=== PATIENT | female | born 1955 | race Caucasian/White ===

== ENCOUNTER 2016-05-28 09:12 | Inpatient (IN) | payer OTHER ==
[~2016-05-28] VITALS: Ht 162.6 cm; Wt 129.7 kg
[2016-05-28] VITALS (7 sets, daily range): BP systolic 115–156
[2016-05-28] MEDS ORDERED: PIPERACILLIN/TAZO 3.38 GM in D5W 50 ML IV ONE (10:00)
[2016-05-28] MEDS ORDERED: NS 1000 ML BAG IV ONE (10:00)
[2016-05-28] MEDS ORDERED: VANCOMYCIN HCL 1,000 MG in NS 250 ML IV ONE (10:00)
[2016-05-28] MEDS ORDERED: VANCOMYCIN HCL 1000 MG/VIAL IV ONE (10:07)
[2016-05-28] MEDS ORDERED: PIPERACILLIN/TAZOBACTAM 3.375 GM/VIAL (ZOSYN) IV ONE (10:08)
[2016-05-28 10:12] LABS: HEMATOCRIT 33.1 % (36-48); HEMOGLOBIN 11.3 g/dL (12.0-16.0); MEAN CORPUSCULAR HEMOGLOBIN 29 pg (27-31); MEAN CORPUSCULAR HGB CONC 34 % (32-36); MEAN CORPUSCULAR VOLUME 86 fL (79.0-98.0); PLATELET COUNT (AUTO) 475 K/uL (130-430); RED BLOOD CELL COUNT(AUTO) 3.85 MIL/uL (4.2-6.2); RED CELL DISTRIBUTION WIDTH 12.2 % (9.0-15.0); WHITE BLOOD COUNT (AUTO) 25.7 K/uL (4.8-10.8)
[2016-05-28 10:22] LABS: CALCIUM 8.7 mg/dL (8.4-11.0); CREATININE 0.82 mg/dL (0.55-1.30); POTASSIUM 3.7 mmol/L (3.5-5.1)
[2016-05-28 10:26] LABS: ALBUMIN 2.2 g/dL (3.4-4.8); TOTAL BILIRUBIN 0.7 mg/dL (0.0-1.0); TOTAL PROTEIN, SERUM 7.6 g/dL (6.4-8.3)
[2016-05-28 10:27] LABS: INR 1.1 (0.8-1.2); PROTHROMBIN TIME 12.3 SECS (9.5-12.5)
[2016-05-28 10:31] LABS: BAND % (MANUAL) 2 % (0-6); BASOPHILS % (MANUAL) 0 % (0-2); EOSINOPHILS % (MANUAL) 0 % (0-7); LYMPHOCYTES % (MANUAL) 13 % (20-46); MONOCYTES % (MANUAL) 2 % (0-11)
[2016-05-28] MEDS ORDERED: cloNIDine HCL 0.1 MG TABLET PO PRN (11:45)
[2016-05-28] MEDS ORDERED: DEXTROSE 50% JECT 50 ML DISP.SYRIN IVP PRN (11:45)
[2016-05-28] MEDS: ONDANSETRON HCL 4 MG/2 ML VIAL IVP PRN (12:29)
[2016-05-28] MEDS: HYDROcodone/ACETAMIN 5-325 MG TAB (NORCO/ VICODIN) PO PRN (12:36)
[2016-05-28] MEDS: metFORMIN HCL 500 MG TABLET PO SCH (17:43)
[2016-05-28] MEDS: AMPICILLIN SODIUM/SULBACTAM NA 3 GM in NS 100 ML IV SCH (17:44)
[2016-05-28] MEDS: INSULIN REGULAR, HUMAN 100 UNITS/ML, 10 ML VIAL (novoLIN R) SUBCUT PRN ×2 (17:45→22:07)
[2016-05-28] MEDS: ACETAMINOPHEN 325 MG TABLET PO PRN (20:24)
[2016-05-28] MEDS: ENOXAPARIN SODIUM 40 MG/0.4 ML SYRINGE SUBCUT SCH (20:28)
[2016-05-28] MEDS ORDERED: ALBUTEROL SULFATE 0.083% 2.5 MG/3 ML VIAL.NEB INH PRN (20:45)
[2016-05-28] MEDS ORDERED: LACTOBACILLUS RHAMNOSUS GG 1 CAP CAPSULE PO SCH (21:00)
[2016-05-28 21:13] LABS: ABG TOTAL HEMOGLOBIN 11.4 G/dL (12.0-18.0); BLOOD GAS BASE EXCESS 0.7 mmol/L (-3.0-3.0); BLOOD GAS COHb% 0.3 % (0.5-1.5); BLOOD GAS HHB 9.5 % (0.0-6.0); BLOOD GAS PH 7.465 (7.350-7.450); BLOOD O2Hb% 89.9 % (94.0-97.0)
[2016-05-28] MEDS: LACTOBACILLUS RHAMNOSUS GG 1 CAP CAPSULE PO SCH (22:08)
[2016-05-28] MEDS ORDERED: IOHEXOL 350 mgI/mL, 150 ML INFUS..BTL IV ONE (22:19)
[2016-05-29] MEDS: AMPICILLIN SODIUM/SULBACTAM NA 3 GM in NS 100 ML IV SCH ×4 (00:06→17:17)
[2016-05-29] MEDS: HYDROcodone/ACETAMIN 10-325 MG TAB PO PRN (00:19)
[2016-05-29 04:20] VITALS: BP_SYST 121
[2016-05-29] MEDS: INSULIN REGULAR, HUMAN 100 UNITS/ML, 10 ML VIAL (novoLIN R) SUBCUT PRN ×4 (06:30→20:37)
[2016-05-29 07:05] LABS: BASOPHILS % (AUTO) 0.2 % (0.0-2.0); EOSINOPHILS # (AUTO) 0.1 K/uL (0.0-0.4); EOSINOPHILS % (AUTO) 0.4 % (0.0-4.0); HEMATOCRIT 31.8 % (36-48); HEMOGLOBIN 10.7 g/dL (12.0-16.0); LYMPHOCYTES % (AUTO) 8.3 % (20.5-51.5); MEAN CORPUSCULAR HEMOGLOBIN 29 pg (27-31); MEAN CORPUSCULAR HGB CONC 34 % (32-36); MEAN CORPUSCULAR VOLUME 87 fL (79.0-98.0); MONOCYTES # (AUTO) 1.2 K/uL (0.0-1.0); MONOCYTES % (AUTO) 5.1 % (1.7-9.3); NEUTROPHILS # (AUTO) 21.1 K/uL (1.8-7.7); PLATELET COUNT (AUTO) 410 K/uL (130-430); RED BLOOD CELL COUNT(AUTO) 3.64 MIL/uL (4.2-6.2); RED CELL DISTRIBUTION WIDTH 12.6 % (9.0-15.0); WHITE BLOOD COUNT (AUTO) 24.4 K/uL (4.8-10.8)
[2016-05-29 07:24] LABS: ALBUMIN 1.7 g/dL (3.4-4.8); CREATININE 0.7 mg/dL (0.55-1.30); POTASSIUM 3.4 mmol/L (3.5-5.1); THYROID STIMULATING HORMONE 1.07 uIu/mL (0.34-4.82); TOTAL BILIRUBIN 0.6 mg/dL (0.0-1.0); TOTAL PROTEIN, SERUM 6.7 g/dL (6.4-8.3)
[2016-05-29 07:29] LABS: IRON (SERUM) 16 mcg/dL (37-145)
[2016-05-29 07:31] LABS: TOTAL IRON BIND. CAPACITY 112 ug/dL (250-450)
[2016-05-29] MEDS: metFORMIN HCL 500 MG TABLET PO SCH ×2 (09:16→17:17)
[2016-05-29] MEDS: LACTOBACILLUS RHAMNOSUS GG 1 CAP CAPSULE PO SCH ×2 (09:16→20:19)
[2016-05-29 09:27] VITALS: BP_SYST 127
[2016-05-29 12:32] VITALS: BP_SYST 144
[2016-05-29] MEDS: SILVER SULFADIAZINE 1%, 25 GM TOPICAL CREAM (SSD) TP SCH ×2 (14:28→20:19)
[2016-05-29] MEDS: ACETAMINOPHEN 325 MG TABLET PO PRN (14:42)
[2016-05-29 16:51] VITALS: BP_SYST 140
[2016-05-29] MEDS ORDERED: POTASSIUM CHLORIDE 20 MEQ TAB.PRT.SR PO ONE (19:15)
[2016-05-29 19:50] VITALS: BP_SYST 113
[2016-05-29] MEDS: ENOXAPARIN SODIUM 40 MG/0.4 ML SYRINGE SUBCUT SCH (20:20)
[2016-05-29] MEDS: OMEPRAZOLE 20 MG CAPSULE.DR (PriLOSEC) PO SCH (21:30)
[2016-05-29] MEDS ORDERED: OMEPRAZOLE 20 MG CAPSULE.DR (PriLOSEC) PO ONE (21:45)
[2016-05-30] VITALS: BP_SYST 123
[2016-05-30] MEDS: AMPICILLIN SODIUM/SULBACTAM NA 3 GM in NS 100 ML IV SCH ×4 (00:16→17:37)
[2016-05-30] MEDS: HYDROcodone/ACETAMIN 5-325 MG TAB (NORCO/ VICODIN) PO PRN (00:18)
[2016-05-30 04:00] VITALS: BP_SYST 135
[2016-05-30] MEDS: INSULIN REGULAR, HUMAN 100 UNITS/ML, 10 ML VIAL (novoLIN R) SUBCUT PRN ×4 (06:29→21:47)
[2016-05-30 06:38] LABS: CALCIUM 7.9 mg/dL (8.4-11.0); CREATININE 0.71 mg/dL (0.55-1.30); POTASSIUM 3.5 mmol/L (3.5-5.1)
[2016-05-30 07:03] LABS: BASOPHILS # (AUTO) 0.1 K/uL (0.0-0.2); BASOPHILS % (AUTO) 0.3 % (0.0-2.0); EOSINOPHILS # (AUTO) 0.2 K/uL (0.0-0.4); EOSINOPHILS % (AUTO) 1.4 % (0.0-4.0); HEMATOCRIT 30.9 % (36-48); HEMOGLOBIN 10.2 g/dL (12.0-16.0); LYMPHOCYTES # (AUTO) 2.4 K/uL (1.0-5.5); LYMPHOCYTES % (AUTO) 13.3 % (20.5-51.5); MEAN CORPUSCULAR HEMOGLOBIN 29 pg (27-31); MEAN CORPUSCULAR HGB CONC 33 % (32-36); MEAN CORPUSCULAR VOLUME 88 fL (79.0-98.0); MONOCYTES # (AUTO) 1.1 K/uL (0.0-1.0); MONOCYTES % (AUTO) 6.2 % (1.7-9.3); PLATELET COUNT (AUTO) 430 K/uL (130-430); RED BLOOD CELL COUNT(AUTO) 3.52 MIL/uL (4.2-6.2); RED CELL DISTRIBUTION WIDTH 12.4 % (9.0-15.0); WHITE BLOOD COUNT (AUTO) 17.8 K/uL (4.8-10.8)
[2016-05-30] MEDS: OMEPRAZOLE 20 MG CAPSULE.DR (PriLOSEC) PO SCH (08:48)
[2016-05-30] MEDS: metFORMIN HCL 500 MG TABLET PO SCH ×2 (08:49→17:36)
[2016-05-30] MEDS: LACTOBACILLUS RHAMNOSUS GG 1 CAP CAPSULE PO SCH ×2 (08:49→21:43)
[2016-05-30 09:24] LABS: ABG TOTAL HEMOGLOBIN 12.2 G/dL (12.0-18.0); BLOOD GAS COHb% 0.4 % (0.5-1.5); BLOOD GAS HHB 3.7 % (0.0-6.0); BLOOD GAS PH 7.466 (7.350-7.450); BLOOD O2Hb% 95.6 % (94.0-97.0)
[2016-05-30 10:32] LABS: NEUTROPHILS % (AUTO) 78.8 % (40.0-70.0)
[2016-05-30 11:13] LABS: FOLATE (FOLIC ACID) 6.2 ng/mL (>3.0)
[2016-05-30] MEDS: HYDROcodone/ACETAMIN 10-325 MG TAB PO PRN (11:56)
[2016-05-30] MEDS: SILVER SULFADIAZINE 1%, 25 GM TOPICAL CREAM (SSD) TP SCH ×2 (12:04→21:00)
[2016-05-30 12:31] VITALS: BP_SYST 121
[2016-05-30] MEDS: VANCOMYCIN HCL 1,500 MG in NS 250 ML IV SCH (13:46)
[2016-05-30] MEDS ORDERED: EPOETIN ALFA 4,000 UNITS/ML VIAL SUBCUT ONE (14:00)
[2016-05-30] MEDS: SOD FERRIC GLUC COMPLEX/SUC 125 MG in NS 100 ML IV SCH (15:58)
[2016-05-30 17:23] VITALS: BP_SYST 118
[2016-05-30 19:50] VITALS: BP_SYST 114
[2016-05-30] MEDS: ENOXAPARIN SODIUM 40 MG/0.4 ML SYRINGE SUBCUT SCH (21:43)
[2016-05-31] VITALS (8 sets, daily range): BP systolic 119–144
[2016-05-31] MEDS: AMPICILLIN SODIUM/SULBACTAM NA 3 GM in NS 100 ML IV SCH ×4 (00:02→17:56)
[2016-05-31] MEDS: VANCOMYCIN HCL 1,500 MG in NS 250 ML IV SCH ×2 (00:49→14:08)
[2016-05-31] MEDS: INSULIN REGULAR, HUMAN 100 UNITS/ML, 10 ML VIAL (novoLIN R) SUBCUT PRN ×4 (06:34→21:29)
[2016-05-31] MEDS: metFORMIN HCL 500 MG TABLET PO SCH (09:02)
[2016-05-31] MEDS: LACTOBACILLUS RHAMNOSUS GG 1 CAP CAPSULE PO SCH ×2 (09:02→21:31)
[2016-05-31] MEDS: OMEPRAZOLE 20 MG CAPSULE.DR (PriLOSEC) PO SCH (09:02)
[2016-05-31] MEDS: SILVER SULFADIAZINE 1%, 25 GM TOPICAL CREAM (SSD) TP SCH ×2 (11:37→21:32)
[2016-05-31] MEDS: ACETAMINOPHEN 325 MG TABLET PO PRN (12:13)
[2016-05-31] MEDS: MORPHINE 4 MG/ML INJ. SYRINGE IVP PRN (16:37)
[2016-05-31] MEDS: SOD FERRIC GLUC COMPLEX/SUC 125 MG in NS 100 ML IV SCH (16:38)
[2016-05-31] MEDS ORDERED: COMMUNICATION ORDER XX ONE (17:15)
[2016-05-31] MEDS: ENOXAPARIN SODIUM 40 MG/0.4 ML SYRINGE SUBCUT SCH (21:31)
[2016-06-01] VITALS (8 sets, daily range): BP systolic 125–154
[2016-06-01] MEDS: AMPICILLIN SODIUM/SULBACTAM NA 3 GM in NS 100 ML IV SCH ×4 (00:18→18:11)
[2016-06-01] MEDS: VANCOMYCIN HCL 1,500 MG in NS 250 ML IV SCH ×2 (00:19→13:24)
[2016-06-01] MEDS: ONDANSETRON HCL 4 MG/2 ML VIAL IVP PRN (03:10)
[2016-06-01 06:21] LABS: BASOPHILS # (AUTO) 0.1 K/uL (0.0-0.2); BASOPHILS % (AUTO) 0.7 % (0.0-2.0); EOSINOPHILS # (AUTO) 0.3 K/uL (0.0-0.4); HEMATOCRIT 30.4 % (36-48); HEMOGLOBIN 10.7 g/dL (12.0-16.0); LYMPHOCYTES # (AUTO) 2.1 K/uL (1.0-5.5); LYMPHOCYTES % (AUTO) 14.2 % (20.5-51.5); MEAN CORPUSCULAR HEMOGLOBIN 29 pg (27-31); MEAN CORPUSCULAR HGB CONC 35 % (32-36); MEAN CORPUSCULAR VOLUME 84 fL (79.0-98.0); MONOCYTES # (AUTO) 0.6 K/uL (0.0-1.0); MONOCYTES % (AUTO) 4.5 % (1.7-9.3); NEUTROPHILS # (AUTO) 11.3 K/uL (1.8-7.7); NEUTROPHILS % (AUTO) 78.6 % (40.0-70.0); PLATELET COUNT (AUTO) 510 K/uL (130-430); RED BLOOD CELL COUNT(AUTO) 3.64 MIL/uL (4.2-6.2); RED CELL DISTRIBUTION WIDTH 12.4 % (9.0-15.0); WHITE BLOOD COUNT (AUTO) 14.4 K/uL (4.8-10.8)
[2016-06-01 06:46] LABS: CALCIUM 7.9 mg/dL (8.4-11.0); CREATININE 0.62 mg/dL (0.55-1.30); POTASSIUM 3.2 mmol/L (3.5-5.1)
[2016-06-01] MEDS: INSULIN REGULAR, HUMAN 100 UNITS/ML, 10 ML VIAL (novoLIN R) SUBCUT PRN ×4 (06:47→22:09)
[2016-06-01] MEDS: LACTOBACILLUS RHAMNOSUS GG 1 CAP CAPSULE PO SCH ×2 (08:24→22:03)
[2016-06-01] MEDS: OMEPRAZOLE 20 MG CAPSULE.DR (PriLOSEC) PO SCH (08:24)
[2016-06-01] MEDS: LOSARTAN POTASSIUM 25 MG TABLET PO SCH (08:25)
[2016-06-01] MEDS ORDERED: GADOPENTETATE DIMEGLUMINE 15 ML VIAL IV ONE (09:07)
[2016-06-01] MEDS: ACETAMINOPHEN 325 MG TABLET PO PRN ×2 (11:34→22:36)
[2016-06-01] MEDS: SILVER SULFADIAZINE 1%, 25 GM TOPICAL CREAM (SSD) TP SCH ×2 (11:51→22:03)
[2016-06-01] MEDS ORDERED: POTASSIUM CHLORIDE 20 MEQ TAB.PRT.SR PO ONE (12:00)
[2016-06-01] MEDS: ENOXAPARIN SODIUM 40 MG/0.4 ML SYRINGE SUBCUT SCH (22:03)
[2016-06-02] VITALS: BP_SYST 132
[2016-06-02] MEDS: VANCOMYCIN HCL 1,500 MG in NS 250 ML IV SCH (00:22)
[2016-06-02] MEDS: AMPICILLIN SODIUM/SULBACTAM NA 3 GM in NS 100 ML IV SCH ×6 (00:23→23:18)
[2016-06-02 05:06] VITALS: BP_SYST 136
[2016-06-02 06:38] LABS: BASOPHILS # (AUTO) 0.1 K/uL (0.0-0.2); EOSINOPHILS # (AUTO) 0.4 K/uL (0.0-0.4); EOSINOPHILS % (AUTO) 3.2 % (0.0-4.0); HEMATOCRIT 30.3 % (36-48); HEMOGLOBIN 10.6 g/dL (12.0-16.0); LYMPHOCYTES # (AUTO) 2.2 K/uL (1.0-5.5); LYMPHOCYTES % (AUTO) 15.4 % (20.5-51.5); MEAN CORPUSCULAR HEMOGLOBIN 29 pg (27-31); MEAN CORPUSCULAR HGB CONC 35 % (32-36); MEAN CORPUSCULAR VOLUME 83 fL (79.0-98.0); MONOCYTES # (AUTO) 0.6 K/uL (0.0-1.0); NEUTROPHILS # (AUTO) 10.7 K/uL (1.8-7.7); NEUTROPHILS % (AUTO) 76.4 % (40.0-70.0); PLATELET COUNT (AUTO) 509 K/uL (130-430); RED BLOOD CELL COUNT(AUTO) 3.65 MIL/uL (4.2-6.2); RED CELL DISTRIBUTION WIDTH 12.2 % (9.0-15.0)
[2016-06-02 06:58] LABS: ALANINE AMINOTRANSFERASE 23 U/L (12-78); ALBUMIN 1.9 g/dL (3.4-4.8); ASPARTATE AMINOTRANSFERASE 20 U/L (10-37); CALCIUM 8.3 mg/dL (8.4-11.0); CHLORIDE 99 mmol/L (98-107); CHOLESTEROL 120 mg/dL (<200); CREATININE 0.62 mg/dL (0.55-1.30); GFR AFRICAN AMERICAN 126 mL/min (>90); GLUCOSE 158 mg/dL (70-99); HDL CHOLESTEROL 26 mg/dL (>55); LDL CHOLESTEROL 78 mg/dL (<100); POTASSIUM 3.8 mmol/L (3.5-5.1); SODIUM SERUM 134 mmol/L (136-145); TOTAL BILIRUBIN 0.3 mg/dL (0.0-1.0); TOTAL PROTEIN, SERUM 6.6 g/dL (6.4-8.3); TRIGLYCERIDES 132 mg/dL (30-150); UREA NITROGEN, BLOOD 6 mg/dL (8-21)
[2016-06-02 06:59] LABS: ANION GAP < 3 (5-15)
[2016-06-02 08:12] VITALS: BP_SYST 144
[2016-06-02] MEDS: POTASSIUM CHLORIDE 20 MEQ TAB.PRT.SR PO SCH (08:52)
[2016-06-02] MEDS: OMEPRAZOLE 20 MG CAPSULE.DR (PriLOSEC) PO SCH (08:53)
[2016-06-02] MEDS: LACTOBACILLUS RHAMNOSUS GG 1 CAP CAPSULE PO SCH ×2 (08:53→20:55)
[2016-06-02] MEDS: LOSARTAN POTASSIUM 25 MG TABLET PO SCH (08:53)
[2016-06-02] MEDS: SILVER SULFADIAZINE 1%, 25 GM TOPICAL CREAM (SSD) TP SCH ×2 (08:54→20:56)
[2016-06-02] MEDS: INSULIN REGULAR, HUMAN 100 UNITS/ML, 10 ML VIAL (novoLIN R) SUBCUT PRN ×3 (11:24→21:05)
[2016-06-02 12:06] VITALS: BP_SYST 125
[2016-06-02] MEDS: MORPHINE 4 MG/ML INJ. SYRINGE IVP PRN (15:50)
[2016-06-02 16:08] VITALS: BP_SYST 136
[2016-06-02 19:30] VITALS: BP_SYST 130
[2016-06-02] MEDS: ENOXAPARIN SODIUM 40 MG/0.4 ML SYRINGE SUBCUT SCH (20:56)
[2016-06-03] VITALS (7 sets, daily range): BP systolic 124–147
[2016-06-03] MEDS: AMPICILLIN SODIUM/SULBACTAM NA 3 GM in NS 100 ML IV SCH ×4 (05:14→23:21)
[2016-06-03] MEDS: INSULIN REGULAR, HUMAN 100 UNITS/ML, 10 ML VIAL (novoLIN R) SUBCUT PRN ×4 (06:19→22:30)
[2016-06-03 06:31] LABS: BASOPHILS % (AUTO) 0.2 % (0.0-2.0); EOSINOPHILS # (AUTO) 0.4 K/uL (0.0-0.4); EOSINOPHILS % (AUTO) 2.7 % (0.0-4.0); HEMATOCRIT 31.9 % (36-48); HEMOGLOBIN 10.7 g/dL (12.0-16.0); LYMPHOCYTES # (AUTO) 2.5 K/uL (1.0-5.5); LYMPHOCYTES % (AUTO) 16.8 % (20.5-51.5); MEAN CORPUSCULAR HEMOGLOBIN 29 pg (27-31); MEAN CORPUSCULAR HGB CONC 34 % (32-36); MEAN CORPUSCULAR VOLUME 87 fL (79.0-98.0); MONOCYTES # (AUTO) 0.8 K/uL (0.0-1.0); MONOCYTES % (AUTO) 5.7 % (1.7-9.3); NEUTROPHILS # (AUTO) 10.9 K/uL (1.8-7.7); NEUTROPHILS % (AUTO) 74.6 % (40.0-70.0); PLATELET COUNT (AUTO) 519 K/uL (130-430); RED BLOOD CELL COUNT(AUTO) 3.66 MIL/uL (4.2-6.2); RED CELL DISTRIBUTION WIDTH 12.6 % (9.0-15.0); WHITE BLOOD COUNT (AUTO) 14.6 K/uL (4.8-10.8)
[2016-06-03 06:47] LABS: CALCIUM 8.3 mg/dL (8.4-11.0); CREATININE 0.58 mg/dL (0.55-1.30); POTASSIUM 4.3 mmol/L (3.5-5.1)
[2016-06-03] MEDS: metFORMIN HCL 500 MG TABLET PO SCH ×2 (09:37→17:12)
[2016-06-03] MEDS: OMEPRAZOLE 20 MG CAPSULE.DR (PriLOSEC) PO SCH (09:37)
[2016-06-03] MEDS: LOSARTAN POTASSIUM 25 MG TABLET PO SCH (09:38)
[2016-06-03] MEDS: SILVER SULFADIAZINE 1%, 25 GM TOPICAL CREAM (SSD) TP SCH ×2 (09:38→22:36)
[2016-06-03] MEDS: POTASSIUM CHLORIDE 20 MEQ TAB.PRT.SR PO SCH (09:38)
[2016-06-03] MEDS: LACTOBACILLUS RHAMNOSUS GG 1 CAP CAPSULE PO SCH ×2 (09:38→22:00)
[2016-06-03 11:57] LABS: INR 1.1 (0.8-1.2); PROTHROMBIN TIME 11.6 SECS (9.5-12.5)
[2016-06-03] MEDS ORDERED: CHOLECALCIFEROL (VITAMIN D3) 2,000 UNIT TABLET PO ONE (16:30)
[2016-06-03] MEDS: VANCOMYCIN HCL 1,500 MG in NS 250 ML IV SCH (20:32)
[2016-06-03] MEDS: ENOXAPARIN SODIUM 40 MG/0.4 ML SYRINGE SUBCUT SCH (21:54)
[2016-06-03] MEDS: NYSTATIN 30 GM TOPICAL CREAM TP SCH (22:35)
[2016-06-03] MEDS: MORPHINE 4 MG/ML INJ. SYRINGE IVP PRN (23:21)
[2016-06-04 00:48] VITALS: BP_SYST 131
[2016-06-04 04:52] VITALS: BP_SYST 141
[2016-06-04] MEDS: AMPICILLIN SODIUM/SULBACTAM NA 3 GM in NS 100 ML IV SCH ×4 (05:40→23:07)
[2016-06-04] MEDS: ACETAMINOPHEN 325 MG TABLET PO PRN (08:34)
[2016-06-04] MEDS: VANCOMYCIN HCL 1,500 MG in NS 250 ML IV SCH ×2 (08:35→20:12)
[2016-06-04] MEDS: LACTOBACILLUS RHAMNOSUS GG 1 CAP CAPSULE PO SCH ×2 (08:35→20:12)
[2016-06-04] MEDS: LOSARTAN POTASSIUM 25 MG TABLET PO SCH (08:36)
[2016-06-04] MEDS: OMEPRAZOLE 20 MG CAPSULE.DR (PriLOSEC) PO SCH (08:36)
[2016-06-04] MEDS: CHOLECALCIFEROL (VITAMIN D3) 2,000 UNIT TABLET PO SCH (08:37)
[2016-06-04] MEDS: POTASSIUM CHLORIDE 20 MEQ TAB.PRT.SR PO SCH (08:37)
[2016-06-04] MEDS: metFORMIN HCL 500 MG TABLET PO SCH ×2 (08:37→17:20)
[2016-06-04] MEDS: NYSTATIN 30 GM TOPICAL CREAM TP SCH ×2 (08:40→20:13)
[2016-06-04] MEDS: SILVER SULFADIAZINE 1%, 25 GM TOPICAL CREAM (SSD) TP SCH ×2 (08:40→20:13)
[2016-06-04 12:15] VITALS: BP_SYST 116
[2016-06-04 16:10] VITALS: BP_SYST 122
[2016-06-04] MEDS: MORPHINE 4 MG/ML INJ. SYRINGE IVP PRN (16:17)
[2016-06-04 19:40] VITALS: BP_SYST 137
[2016-06-04] MEDS: ENOXAPARIN SODIUM 40 MG/0.4 ML SYRINGE SUBCUT SCH (20:12)
[2016-06-04] MEDS: INSULIN REGULAR, HUMAN 100 UNITS/ML, 10 ML VIAL (novoLIN R) SUBCUT PRN (20:16)
[2016-06-05] VITALS (7 sets, daily range): BP systolic 130–151
[2016-06-05] MEDS: AMPICILLIN SODIUM/SULBACTAM NA 3 GM in NS 100 ML IV SCH ×4 (05:17→23:07)
[2016-06-05 07:06] LABS: BASOPHILS % (AUTO) 0.1 % (0.0-2.0); EOSINOPHILS # (AUTO) 0.4 K/uL (0.0-0.4); EOSINOPHILS % (AUTO) 3.3 % (0.0-4.0); HEMATOCRIT 30.9 % (36-48); HEMOGLOBIN 10.5 g/dL (12.0-16.0); LYMPHOCYTES # (AUTO) 1.8 K/uL (1.0-5.5); LYMPHOCYTES % (AUTO) 15.1 % (20.5-51.5); MEAN CORPUSCULAR HEMOGLOBIN 29 pg (27-31); MEAN CORPUSCULAR HGB CONC 34 % (32-36); MEAN CORPUSCULAR VOLUME 86 fL (79.0-98.0); MONOCYTES # (AUTO) 0.6 K/uL (0.0-1.0); MONOCYTES % (AUTO) 4.9 % (1.7-9.3); NEUTROPHILS % (AUTO) 76.6 % (40.0-70.0); PLATELET COUNT (AUTO) 524 K/uL (130-430); RED BLOOD CELL COUNT(AUTO) 3.59 MIL/uL (4.2-6.2); RED CELL DISTRIBUTION WIDTH 12.9 % (9.0-15.0); WHITE BLOOD COUNT (AUTO) 11.8 K/uL (4.8-10.8)
[2016-06-05 07:18] LABS: CALCIUM 8.4 mg/dL (8.4-11.0); CREATININE 0.61 mg/dL (0.55-1.30); POTASSIUM 3.8 mmol/L (3.5-5.1)
[2016-06-05] MEDS: VANCOMYCIN HCL 1,500 MG in NS 250 ML IV SCH ×2 (09:00→21:45)
[2016-06-05] MEDS: NYSTATIN 30 GM TOPICAL CREAM TP SCH ×2 (09:00→22:59)
[2016-06-05] MEDS: CHOLECALCIFEROL (VITAMIN D3) 2,000 UNIT TABLET PO SCH (09:57)
[2016-06-05] MEDS: LACTOBACILLUS RHAMNOSUS GG 1 CAP CAPSULE PO SCH ×2 (09:57→21:45)
[2016-06-05] MEDS: LOSARTAN POTASSIUM 25 MG TABLET PO SCH (09:59)
[2016-06-05] MEDS: metFORMIN HCL 500 MG TABLET PO SCH ×2 (09:59→17:13)
[2016-06-05] MEDS: OMEPRAZOLE 20 MG CAPSULE.DR (PriLOSEC) PO SCH (09:59)
[2016-06-05] MEDS: POTASSIUM CHLORIDE 20 MEQ TAB.PRT.SR PO SCH (10:00)
[2016-06-05] MEDS: ACETAMINOPHEN 325 MG TABLET PO PRN (14:05)
[2016-06-05] MEDS: SILVER SULFADIAZINE 1%, 25 GM TOPICAL CREAM (SSD) TP SCH ×2 (16:09→22:59)
[2016-06-05] MEDS: MORPHINE 4 MG/ML INJ. SYRINGE IVP PRN ×2 (16:14→23:04)
[2016-06-05] MEDS ORDERED: FLUCONAZOLE 200 MG TABLET (DIFLUCAN) PO ONE (17:45)
[2016-06-05] MEDS: ENOXAPARIN SODIUM 40 MG/0.4 ML SYRINGE SUBCUT SCH (21:45)
[2016-06-05] MEDS: INSULIN REGULAR, HUMAN 100 UNITS/ML, 10 ML VIAL (novoLIN R) SUBCUT PRN (21:59)
[2016-06-06] VITALS (7 sets, daily range): BP systolic 124–137
[2016-06-06] MEDS: AMPICILLIN SODIUM/SULBACTAM NA 3 GM in NS 100 ML IV SCH ×4 (05:56→23:47)
[2016-06-06] MEDS: INSULIN REGULAR, HUMAN 100 UNITS/ML, 10 ML VIAL (novoLIN R) SUBCUT PRN ×2 (06:30→17:57)
[2016-06-06] MEDS: metFORMIN HCL 500 MG TABLET PO SCH ×2 (08:43→17:40)
[2016-06-06] MEDS: OMEPRAZOLE 20 MG CAPSULE.DR (PriLOSEC) PO SCH (09:37)
[2016-06-06] MEDS: POTASSIUM CHLORIDE 20 MEQ TAB.PRT.SR PO SCH (09:37)
[2016-06-06] MEDS: LACTOBACILLUS RHAMNOSUS GG 1 CAP CAPSULE PO SCH ×2 (09:37→20:21)
[2016-06-06] MEDS: FLUCONAZOLE 200 MG TABLET (DIFLUCAN) PO SCH (09:38)
[2016-06-06] MEDS: CHOLECALCIFEROL (VITAMIN D3) 2,000 UNIT TABLET PO SCH (09:46)
[2016-06-06] MEDS: NYSTATIN 30 GM TOPICAL CREAM TP SCH ×2 (09:48→20:24)
[2016-06-06] MEDS: SILVER SULFADIAZINE 1%, 25 GM TOPICAL CREAM (SSD) TP SCH ×2 (09:48→21:58)
[2016-06-06] MEDS: LOSARTAN POTASSIUM 25 MG TABLET PO SCH (09:49)
[2016-06-06] MEDS: VANCOMYCIN HCL 1,500 MG in NS 250 ML IV SCH ×2 (10:50→20:27)
[2016-06-06] MEDS: MORPHINE 4 MG/ML INJ. SYRINGE IVP PRN ×2 (12:27→21:13)
[2016-06-06] MEDS: ACETAMINOPHEN 325 MG TABLET PO PRN (20:21)
[2016-06-06] MEDS: ENOXAPARIN SODIUM 40 MG/0.4 ML SYRINGE SUBCUT SCH (20:22)
[2016-06-07] MEDS: ONDANSETRON HCL 4 MG/2 ML VIAL IVP PRN (03:49)
[2016-06-07 04:25] VITALS: BP_SYST 132
[2016-06-07] MEDS: AMPICILLIN SODIUM/SULBACTAM NA 3 GM in NS 100 ML IV SCH ×4 (05:05→23:42)
[2016-06-07] MEDS: INSULIN REGULAR, HUMAN 100 UNITS/ML, 10 ML VIAL (novoLIN R) SUBCUT PRN ×2 (06:43→20:38)
[2016-06-07 07:00] VITALS: BP_SYST 128
[2016-06-07] MEDS: POTASSIUM CHLORIDE 20 MEQ TAB.PRT.SR PO SCH (09:42)
[2016-06-07] MEDS: metFORMIN HCL 500 MG TABLET PO SCH (09:44)
[2016-06-07] MEDS: FLUCONAZOLE 200 MG TABLET (DIFLUCAN) PO SCH (09:45)
[2016-06-07] MEDS: VANCOMYCIN HCL 1,500 MG in NS 250 ML IV SCH ×2 (09:45→20:32)
[2016-06-07] MEDS: CHOLECALCIFEROL (VITAMIN D3) 2,000 UNIT TABLET PO SCH (09:46)
[2016-06-07] MEDS: LOSARTAN POTASSIUM 25 MG TABLET PO SCH (09:46)
[2016-06-07] MEDS: OMEPRAZOLE 20 MG CAPSULE.DR (PriLOSEC) PO SCH (09:46)
[2016-06-07] MEDS: LACTOBACILLUS RHAMNOSUS GG 1 CAP CAPSULE PO SCH ×2 (09:47→20:33)
[2016-06-07] MEDS: NYSTATIN 30 GM TOPICAL CREAM TP SCH ×2 (09:48→20:34)
[2016-06-07] MEDS: SILVER SULFADIAZINE 1%, 25 GM TOPICAL CREAM (SSD) TP SCH ×2 (09:48→20:35)
[2016-06-07] MEDS: MORPHINE 4 MG/ML INJ. SYRINGE IVP PRN ×2 (09:53→21:42)
[2016-06-07] MEDS ORDERED: IOHEXOL 350 mgI/mL, 150 ML INFUS..BTL IV ONE (11:08)
[2016-06-07 11:10] VITALS: BP_SYST 120
[2016-06-07 12:00] VITALS: BP_SYST 126
[2016-06-07 18:06] VITALS: BP_SYST 143
[2016-06-07 20:00] VITALS: BP_SYST 131
[2016-06-07] MEDS: ENOXAPARIN SODIUM 40 MG/0.4 ML SYRINGE SUBCUT SCH (20:33)
[2016-06-07] MEDS: ACETAMINOPHEN 325 MG TABLET PO PRN (20:45)
[2016-06-08 00:08] VITALS: BP_SYST 120
[2016-06-08] MEDS: ACETAMINOPHEN 325 MG TABLET PO PRN (02:45)
[2016-06-08 03:31] VITALS: BP_SYST 114
[2016-06-08] MEDS: AMPICILLIN SODIUM/SULBACTAM NA 3 GM in NS 100 ML IV SCH ×3 (05:12→17:17)
[2016-06-08 06:31] LABS: BASOPHILS % (AUTO) 0.3 % (0.0-2.0); EOSINOPHILS # (AUTO) 0.4 K/uL (0.0-0.4); EOSINOPHILS % (AUTO) 3.4 % (0.0-4.0); HEMOGLOBIN 10.7 g/dL (12.0-16.0); LYMPHOCYTES # (AUTO) 1.8 K/uL (1.0-5.5); LYMPHOCYTES % (AUTO) 15.9 % (20.5-51.5); MEAN CORPUSCULAR HEMOGLOBIN 29 pg (27-31); MEAN CORPUSCULAR HGB CONC 34 % (32-36); MEAN CORPUSCULAR VOLUME 86 fL (79.0-98.0); MONOCYTES # (AUTO) 0.7 K/uL (0.0-1.0); NEUTROPHILS # (AUTO) 8.6 K/uL (1.8-7.7); NEUTROPHILS % (AUTO) 74.4 % (40.0-70.0); PLATELET COUNT (AUTO) 463 K/uL (130-430); RED BLOOD CELL COUNT(AUTO) 3.72 MIL/uL (4.2-6.2); RED CELL DISTRIBUTION WIDTH 12.8 % (9.0-15.0); WHITE BLOOD COUNT (AUTO) 11.5 K/uL (4.8-10.8)
[2016-06-08 06:52] LABS: CALCIUM 8.5 mg/dL (8.4-11.0); CREATININE 0.77 mg/dL (0.55-1.30); POTASSIUM 3.8 mmol/L (3.5-5.1)
[2016-06-08 07:50] VITALS: BP_SYST 131
[2016-06-08] MEDS: OMEPRAZOLE 20 MG CAPSULE.DR (PriLOSEC) PO SCH (09:20)
[2016-06-08] MEDS: LOSARTAN POTASSIUM 25 MG TABLET PO SCH (09:20)
[2016-06-08] MEDS: CHOLECALCIFEROL (VITAMIN D3) 2,000 UNIT TABLET PO SCH (09:20)
[2016-06-08] MEDS: FLUCONAZOLE 200 MG TABLET (DIFLUCAN) PO SCH (09:21)
[2016-06-08] MEDS: POTASSIUM CHLORIDE 20 MEQ TAB.PRT.SR PO SCH (09:21)
[2016-06-08] MEDS: VANCOMYCIN HCL 1,500 MG in NS 250 ML IV SCH (09:21)
[2016-06-08] MEDS: LACTOBACILLUS RHAMNOSUS GG 1 CAP CAPSULE PO SCH (09:38)
[2016-06-08] MEDS: MORPHINE 4 MG/ML INJ. SYRINGE IVP PRN (12:25)
[2016-06-08] MEDS: INSULIN REGULAR, HUMAN 100 UNITS/ML, 10 ML VIAL (novoLIN R) SUBCUT PRN ×2 (12:38→17:36)
[2016-06-08 12:46] VITALS: BP_SYST 140
[2016-06-08] MEDS: SILVER SULFADIAZINE 1%, 25 GM TOPICAL CREAM (SSD) TP SCH (13:20)
[2016-06-08] MEDS: NYSTATIN 30 GM TOPICAL CREAM TP SCH (13:21)
[2016-06-08 16:00] VITALS: BP_SYST 142
[2016-06-08 16:15] VITALS: BP_SYST 143
== END 2016-06-08 18:25 | DRG 871 ==
LOC: SED 09:12 → SMU 10:59 → STU 20:25 → SMU 06-03 19:04
PROVIDERS: ADMIT Internal Medicine; ATTEND Internal Medicine
PROC: 05HB33Z Insertion of Infusion Device into Right Basilic Vein, Percutaneous Approach (ICD-10-PCS; principal; 2016-06-03)
PROC: B54MZZA Ultrasonography of Right Upper Extremity Veins, Guidance (ICD-10-PCS; 2016-06-03)
PROC: 3E03329 Introduction of Other Anti-infective into Peripheral Vein, Percutaneous Approach (ICD-10-PCS; 2016-06-03)
DX: A41.9 Sepsis, unspecified organism (principal); E43 Unspecified severe protein-calorie malnutrition; J96.01 Acute respiratory failure with hypoxia; L03.115 Cellulitis of right lower limb; E87.1 Hypo-osmolality and hyponatremia; J98.11 Atelectasis; E66.2 Morbid (severe) obesity with alveolar hypoventilation; M86.8X8 Other osteomyelitis, other site; Z68.42 Body mass index [BMI] 45.0-49.9, adult; E11.65 Type 2 diabetes mellitus with hyperglycemia; D50.9 Iron deficiency anemia, unspecified; I89.0 Lymphedema, not elsewhere classified; R16.0 Hepatomegaly, not elsewhere classified; I10 Essential (primary) hypertension; I87.2 Venous insufficiency (chronic) (peripheral); D63.8 Anemia in other chronic diseases classified elsewhere; E87.6 Hypokalemia; E83.51 Hypocalcemia; I87.8 Other specified disorders of veins; Z80.1 Family history of malignant neoplasm of trachea, bronchus and lung; Z90.710 Acquired absence of both cervix and uterus
CPT/HCPCS: 36415; 36600; 71010; 71275; 73706; 73720; 78315; 80048; 80053; 80061; 80202-TC; 82306; 82607; 82746; 82803-TC; 82962; 83036; 83540-TC; 83550-TC; 83605; 83735-TC; 83880; 84439; 84443-TC; 85007; 85025; 85027; 85610-TC; 85730-TC; 87040-TC; 87070-TC; 87230-TC; 93005; 93306; 93922; 93970; 94010; 94760; 96365; 99291; A9503; A9579; C1751; C1769; J0295; J0885; J1650; J1815; J2270; J2405; J2543; J2916; J3370; J7030; J7050; Q9967